=== PATIENT | female | born 1980 | race African-American/Black ===

== ENCOUNTER 2020-06-13 17:22 | Emergency (ER) | payer SELFPAY ==
[2020-06-13] MEDS ORDERED: MORPHINE 4 MG/ML SYR ONE (18:23)
[2020-06-13] MEDS ORDERED: ONDANSETRON 4 MG/2 ML VIAL ONE (18:24)
[2020-06-13] MEDS ORDERED: NA CHLORIDE 0.9% 500 ML ONE (18:24)
[2020-06-13 18:44] LABS: Urine Blood 1+ (NEG); Urine Glucose NEGATIVE (NEG); Urine Protein 1+ (NEG); Urine pH 5.5 (5.0-7.0)
[2020-06-13 19:02] LABS: Absolute Lymphocytes (CBC) 1.6 K/uL (0.7-4.9); Basophils % 0.7 % (0-1.3); Hematocrit 36.6 % (36.0-45.0); Lymphocytes % 12.7 % (15.3-44.8); MPV 8.7 fL (7.6-11.3); RBC Red Blood Cell Count 4.54 M/uL (3.86-4.86)
--- NOTE | 2020-06-13 19:16 | RAD REPORT ---
EXAM DESCRIPTION: CT - Abdomen Pelvis W Contrast - 06/13/2020 7:02 pm CLINICAL HISTORY: Abdominal pain COMPARISON: none. TECHNIQUE: Computed axial tomography of the abdomen pelvis was obtained. 100 cc Isovue-300 was admin istered intravenously. Oral contrast was not requested which limits evaluation of bowel and appendix. All CT scans are performed using dose optimization technique as appropriate and may include automated exposure control or mA/KV adjustment according to patient size. FINDINGS: The liver, spleen, pancreas, adrenal and right kidney appear unremarkable. Small area of diminished density is present within the left kidney reaching the periphery. The appendix is not clearly visualized. Cholecystectomy 2 centimeter left ovarian cyst without significant free fluid There is no evidence of diverticulitis. IMPRESSION: Small area of diminished density within the left kidney may indicate inflammation 2 centimeter left ovarian cyst without significant free-fluid.
[2020-06-13 19:20] LABS: ALT/SGPT 17 U/L (12-78); AST/SGOT 11 U/L (15-37); Albumin 3.3 g/dL (3.4-5.0); Alkaline Phosphatase 52 U/L (45-117); BUN Blood Urea Nitrogen 4 mg/dL (7-18); Bicarbonate 26 mmol/L (21-32); Bilirubin Direct 0.1 mg/dL (0-0.2); Bilirubin Total 0.5 mg/dL (0.2-1.0); Glucose Level 86 mg/dL (74-106); Lipase 122 U/L (73-393); Potassium 3.5 mmol/L (3.5-5.1); Protein, Total 8.3 g/dL (6.4-8.2); Sodium Level 138 mmol/L (136-145)
[2020-06-13 19:42] LABS: Urine Bacteria >50 /HPF (<20); Urine Culture Reflex Order REFLEXED
[2020-06-13 19:43] LABS: Urine Mucus 2+ /HPF (NONE SEEN)
--- NOTE | 2020-06-13 19:45 | EDPHYS ---
Physician Documentation [facility] Name: Randall Edmond Age: 40 yrs Sex: Female : 1980 Arrival Date: 06/13/2020 Time: 17:23 Bed 6 Private MD: ED Physician Son Valdovinos HPI: 06/13 18:44 This 40 yrs old Black Female presents to ER via Ambulatory with complaints of Pain, kdr Headache, Vomiting. 18:44 The patient began to feel poorly last night with mild nausea and headache. Today, her kdr discomfort is now mostly around her upper abdomen and similar latitude on her back - ring like around her torso. The last time she had this kind of pain was many years ago before she had her gallbladder taken out. She is non-toxic appearing and otherwise in her usual state of health. Onset: The symptoms/episode began/occurred last night. Severity of symptoms: At their worst the symptoms were moderate in the emergency department the symptoms are unchanged. The patient has experienced a previous episode, many years ago. The patient has not recently seen a physician. 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 - Social history:: Smoking status: Patient denies any tobacco usage or history of. ROS: 18:44 Constitutional: Negative for fever, chills, and weight loss, Eyes: Negative for injury, kdr pain, redness, and discharge, ENT: Negative for injury, pain, and discharge, Neck: Negative for injury, pain, and swelling, Cardiovascular: Negative for chest pain, palpitations, and edema, Respiratory: Negative for shortness of breath, cough, wheezing, and pleuritic chest pain, : Negative for injury, bleeding, discharge, and swelling, MS/Extremity: Negative for injury and deformity, Skin: Negative for injury, rash, and discoloration, Psych: Negative for depression, anxiety, suicide ideation, homicidal ideation, and hallucinations, Allergy/Immunology: Negative for hives, rash, and allergies, Endocrine: Negative for neck swelling, polydipsia, polyuria, polyphagia, and marked weight changes, Hematologic/Lymphatic: Negative for swollen nodes, abnormal bleeding, and unusual bruising. 18:44 Abdomen/GI: Positive for abdominal pain, nausea, abdominal cramps, Negative for abdominal distension, anorexia, dysphagia, hematemesis, black/tarry stool, rectal pain, rectal bleeding, bowel incontinence, flatulence. 18:44 Abdomen/GI: Positive for of the right upper quadrant and left upper quadrant. 18:44 Back: Positive for pain at rest, of the mid back area. Exam: 18:44 Constitutional: This is a well developed, well nourished patient who is awake, alert, kdr and in no acute distress. Head/Face: Normocephalic, atraumatic. Eyes: Pupils equal round and reactive to light, extra-ocular motions intact. Lids and lashes normal. Conjunctiva and sclera are non-icteric and not injected. Cornea within normal limits. Periorbital areas with no swelling, redness, or edema. Neck: Trachea midline, no thyromegaly or masses palpated, and no cervical lymphadenopathy. Supple, full range of motion without nuchal rigidity, or vertebral point tenderness. No Meningismus. Chest/axilla: Normal chest wall appearance and motion. Nontender with no deformity. No lesions are appreciated. Cardiovascular: Regular rate and rhythm with a normal S1 and S2. No gallops, murmurs, or rubs. Normal PMI, no JVD. No pulse deficits. Respiratory: Lungs have equal breath sounds bilaterally, clear to auscultation and percussion. No rales, rhonchi or wheezes noted. No increased work of breathing, no retractions or nasal flaring. Skin: Warm, dry with normal turgor. Normal color with no rashes, no lesions, and no evidence of cellulitis. MS/ Extremity: Pulses equal, no cyanosis. Neurovascular intact. Full, normal range of motion. Neuro: Awake and alert, GCS 15, oriented to person, place, time, and situation. Cranial nerves II-XII grossly intact. Motor strength 5/5 in all extremities. Sensory grossly intact. Cerebellar exam normal. Normal gait. Psych: Awake, alert, with orientation to person, place and time. Behavior, mood, and affect are within normal limits. 18:44 Abdomen/GI: Inspection: obese Bowel sounds: diminished, in all quadrants, Palpation: soft, mild abdominal tenderness, in the epigastric area, posterior aspect of right lateral abdomen, anterior aspect of right lateral abdomen, posterior aspect of left lateral abdomen, anterior aspect of left lateral abdomen, right upper quadrant and left upper quadrant. Vital Signs: 17:30 BP 136 / 87; Pulse 102; Resp 16; Temp 99.2(TE); Pulse Ox 98% on R/A; Weight 104.33 kg; hb Height 5 ft. 1 in. (154.94 cm); Pain 9/10; 19:05 BP 139 / 55; Pulse 81; Resp 18; Pulse Ox 99% on R/A; Pain 4/10; em 20:07 BP 141 / 87; Pulse 78; Resp 18; Pulse Ox 96% on R/A; wh 17:30 Body Mass Index 43.46 (104.33 kg, 154.94 cm) hb MDM: 18:44 Data reviewed: vital signs, nurses notes, lab test result(s), radiologic studies. kdr Counseling: I had a detailed discussion with the patient and/or guardian regarding: the historical points, exam findings, and any diagnostic results supporting the discharge/admit diagnosis, lab results, radiology results. 19:03 Patient medically screened. rn 19:44 Differential Diagnosis UTI, pyelo, ovarian cyst. Special discussion: Based on the rn patient's Hx, exam, and Dx evaluation, there is no indication for emergent surgery or inpatient Tx. It is understood by the patient/guardian that if the Sx's persist or worsen they need to return immediately for re-evaluation. I discussed with the patient/guardian in detail that at this point there is no indication for admission to the hospital. It is understood, however, that if the symptoms persist or worsen the patient needs to return immediately for re-evaluation. 06/13 17:54 Order name: Basic Metabolic Panel kdr 06/13 17:54 Order name: CBC with Diff; Complete Time: 19:11 kdr 06/13 17:54 Order name: Hepatic Function; Complete Time: 19:38 kdr 06/13 17:54 Order name: Lipase; Complete Time: 19:38 kdr 06/13 17:54 Order name: Basic Metabolic Panel; Complete Time: 19:38 EDMS 06/13 18:35 Order name: Urine Dipstick--Ancillary (enter results); Complete Time: 19:11 bd 06/13 17:54 Order name: CT Abd/Pelvis - IV Contrast Only; Complete Time: 19:38 kdr 06/13 18:36 Order name: Urine --Ancillary (enter results); Complete Time: 19:11 bd 06/13 18:49 Order name: Urine Microscopic Only; Complete Time: 19:44 em 06/13 19:43 Order name: Urine Culture EDIN 06/13 17:54 Order name: IV Saline Lock; Complete Time: 19:03 kdr 06/13 17:54 Order name: Labs collected and sent; Complete Time: 19:03 kdr 06/13 17:54 Order name: Urine Dipstick-Ancillary (obtain specimen); Complete Time: 18:49 kdr 06/13 17:54 Order name: Urine Test (obtain specimen); Complete Time: 18:49 kdr Administered Medications: 18:45 Drug: Zofran (Ondansetron) 4 mg Route: IVP; Site: left antecubital; em 20:07 Follow up: Response: No adverse reaction; Nausea is decreased 18:45 Drug: NS 0.9% 500 ml Route: IV; Rate: bolus; Site: left forearm; em 20:08 Follow up: Response: No adverse reaction; IV Status: Completed infusion 18:47 Drug: morphine 4 mg Route: IVP; Site: left forearm; em 20:07 Follow up: Response: No adverse reaction; Pain is decreased; RASS: Alert and Calm (0) 19:50 Drug: Rocephin 1 grams Route: IV; Rate: calculated rate; Site: left forearm; 20:08 Follow up: Response: No adverse reaction; IV Status: Completed infusion Disposition: 06/13/20 19:45 Discharged to Home. Impression: Urinary tract infection, site not specified. - Condition is Stable. - Discharge Instructions: Urinary Tract Infection, Adult. - Prescriptions for Zofran ODT 4 mg Oral tablet,disintegrating - place 1 tablet by TRANSLINGUAL route every 8-12 hours As needed; 20 tablet. cefpodoxime 100 mg Oral Tablet - take 2 tablet by ORAL route every 12 hours for 10 days take with food; 40 tablet. - Medication Reconciliation Form, Thank You Letter, Antibiotic Education, Prescription Opioid Use form. - Follow up: Private Physician; When: As needed; Reason: Recheck today's complaints, Re-evaluation by your physician. - Problem is new. - Symptoms have improved. Signatures: Dispatcher [employer] Sean Herman MD MD kdr Munoz, Edgar, RN RN Son Obrien MD MD rn Habalo, Winsy wh Lewis, Lynsay RN RN ll1 Corrections: (The following items were deleted from the chart) 20: 19:45 06/13/2020 19:45 Discharged to Home. Impression: Urinary tract infection, site wh not specified. Condition is Stable. Forms are Medication Reconciliation Form, Thank You Letter, Antibiotic Education, Prescription Opioid Use. Follow up: Private Physician; When: As needed; Reason: Recheck today's complaints, Re-evaluation by your physician. Problem is new. Symptoms have improved. rn
--- NOTE | 2020-06-13 19:45 | ER ---
Nurse's Notes [facility] Name: Randall Edmond Age: 40 yrs Sex: Female : 1980 Arrival Date: 06/13/2020 Time: 17:23 Bed 6 Private MD: Diagnosis: Urinary tract infection, site not specified Presentation: 06/13 17:30 Chief complaint: Frontal headache, mid back back pain that radiates to abdomen, and N/V ll1 since last night. Coronavirus screen: Client presents with at least one sign or symptom that may indicate coronavirus-19. Standard/surgical mask placed on the client. Provider contacted for isolation considerations. Ebola Screen: No symptoms or risks identified at this time. Initial Sepsis Screen: Does the patient meet any 2 criteria? HR > 90 bpm. No. Patient's initial sepsis screen is negative. Does the patient have a suspected source of infection? No. Patient's initial sepsis screen is negative. Risk Assessment: Do you want to hurt yourself or someone else? Patient reports no desire to harm self or others. Onset of symptoms was June 12, 2020. 17:30 Method Of Arrival: Ambulatory ll1 17:30 Acuity: ALEIDA 3 ll1 Triage Assessment: 19:30 Headache History: The patient has had previous headaches and this one is similar to wh previous episodes. Pain: Pain began suddenly, Also complains of nausea. 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 - Social history:: Smoking status: Patient denies any tobacco usage or history of. Screenin:20 Abuse screen: Denies threats or abuse. Nutritional screening: No deficits noted. em Tuberculosis screening: No symptoms or risk factors identified. Fall Risk None identified. Assessment: 18:20 General: Appears in no apparent distress. uncomfortable, Behavior is calm, cooperative, em Denies fever. Pain: Complains of pain in anterior aspect of left lateral abdomen and posterior aspect of left lateral abdomen and anterior aspect of right lateral abdomen and posterior aspect of right lateral abdomen and epigastric area Pain currently is 9 out of 10 on a pain scale. Quality of pain is described as sharp. Neuro: Level of Consciousness is awake, alert, obeys commands, Oriented to person, place, time, situation, Appropriate for age. Cardiovascular: Capillary refill < 3 seconds Patient's skin is warm and dry. Respiratory: Airway is patent Respiratory effort is even, unlabored, Respiratory pattern is regular, symmetrical. GI: Abdomen is flat, non-distended, Abd is soft X 4 quads Abdomen is tender to palpation in posterior aspect of right lateral abdomen, anterior aspect of right lateral abdomen, posterior aspect of left lateral abdomen and anterior aspect of left lateral abdomen Reports nausea, vomiting. Derm: Skin is intact, is healthy with good turgor, Skin is pink, warm \T\ dry. Musculoskeletal: Capillary refill < 3 seconds, Range of motion: intact in all extremities. 19:30 Reassessment: Patient appears in no apparent distress at this time. Patient and/or wh family updated on plan of care and expected duration. Pain level reassessed. Patient is alert, oriented x 3, equal unlabored respirations, skin warm/dry/pink. Vital Signs: 17:30 BP 136 / 87; Pulse 102; Resp 16; Temp 99.2(TE); Pulse Ox 98% on R/A; Weight 104.33 kg; hb Height 5 ft. 1 in. (154.94 cm); Pain 9/10; 19:05 BP 139 / 55; Pulse 81; Resp 18; Pulse Ox 99% on R/A; Pain 4/10; em 20:07 BP 141 / 87; Pulse 78; Resp 18; Pulse Ox 96% on R/A; wh 17:30 Body Mass Index 43.46 (104.33 kg, 154.94 cm) hb ED Course: 17:23 Patient arrived in ED. ag5 17:32 Triage completed. ll1 17:33 Arm band placed on. ll1 17:39 Sean Gallardo MD is Attending Physician. kdr 18:11 Zen Dubon, SELVIN is Primary Nurse. em 18:20 Patient has correct armband on for positive identification. Bed in low position. Call em light in reach. 18:45 Initial lab(s) drawn, by me, sent to lab. Inserted saline lock: 22 gauge in left em forearm, using aseptic technique. Blood collected. 19:02 CT Abd/Pelvis - IV Contrast Only In Process Unspecified. EDMS 19:03 Attending Physician role handed off by Sean Gallardo MD rn 19:03 Son Valdovinos MD is Attending Physician. rn 19:53 Primary Nurse role handed off by Zen Dubon RN mw2 20:06 Chelle Phillips is Primary Nurse. 20:08 No provider procedures requiring assistance completed. IV discontinued, intact, bleeding controlled, No redness/swelling at site. Administered Medications: 18:45 Drug: Zofran (Ondansetron) 4 mg Route: IVP; Site: left antecubital; em 20:07 Follow up: Response: No adverse reaction; Nausea is decreased 18:45 Drug: NS 0.9% 500 ml Route: IV; Rate: bolus; Site: left forearm; em 20:08 Follow up: Response: No adverse reaction; IV Status: Completed infusion 18:47 Drug: morphine 4 mg Route: IVP; Site: left forearm; em 20:07 Follow up: Response: No adverse reaction; Pain is decreased; RASS: Alert and Calm (0) 19:50 Drug: Rocephin 1 grams Route: IV; Rate: calculated rate; Site: left forearm; 20:08 Follow up: Response: No adverse reaction; IV Status: Completed infusion Outcome: 19:45 Discharge ordered by . rn 20:08 Discharged to home ambulatory. 20:08 Condition: stable 20:08 Discharge instructions given to patient, Instructed on discharge instructions, follow up and referral plans. medication usage, POC Demonstrated understanding of instructions, follow-up care, medications, POC Prescriptions given X 2. 20:09 Patient left the ED. Signatures: Dispatcher [employer] EDMS Sean Gallardo MD MD [facility] Zen Dubon RN RN Son Valdovinos MD MD rn Baxter, Heather, RN RN Chelle Phillips Zunilda Sandoval mw2 Jessica Magaña 5 Ghanshyam Ibarra RN RN ll1 Corrections: (The following items were deleted from the chart) 17:38 17:30 Pulse 102bpm; Resp 16bpm; Pulse Ox 98% RA; Temp 99.2F Temporal; 104.33 kg; Height hb 5 ft. 1 in.; BMI: 43.4; Pain 9/10; ll1
[2020-06-13] MEDS ORDERED: CEFTRIAXONE/SWI 1gm 1 GM/10 ML SYR ONE (19:58)
[2020-06-13 20:34] VITALS: TEMP 99.2
[2020-06-13 20:37] VITALS: BP 141/87; O2SAT 96
== END 2020-06-13 20:09 | disposition home or self-care (01) ==
LOC: ER 17:22
DX: N39.0 Urinary tract infection, site not specified (principal)
CPT/HCPCS: 36415; 74177; 80048; 80076; 81003; 81015; 81025; 82565; 83690; 85025; 87086; 87088; 99284; J0696; J2405; J7040; Q9967

== ENCOUNTER 2021-06-29 20:24 | Emergency (ER) | payer SELFPAY ==
[2021-06-29 21:56] LABS: Urine Blood Trace-intact (Negative); Urine Glucose Negative (Negative); Urine Protein Negative (Negative); Urine Specific Gravity >=1.030 (1.005-1.030)
[2021-06-29] MEDS ORDERED: MORPHINE 4 MG/ML SYR ONE (21:57)
[2021-06-29] MEDS ORDERED: NA CHLORIDE 0.9% 500 ML ONE (21:58)
[2021-06-29] MEDS ORDERED: ONDANSETRON 4 MG/2 ML VIAL ONE (21:58)
[2021-06-29 22:00] LABS: Urine Specific Gravity/Preg >1.030 (1.005-1.030)
[2021-06-29 22:07] LABS: Urine Bacteria <20 /HPF (<20); Urine RBC <5 /HPF (NONE SEEN)
[2021-06-29 23:07] LABS: Absolute Lymphocytes (CBC) 2.6 K/uL (0.7-4.9); Basophils % 0.9 % (0-1.3); Hematocrit 39.2 % (36.0-45.0); Lymphocytes % 38.3 % (15.3-44.8); MPV 8.3 fL (7.6-11.3); RBC Red Blood Cell Count 4.88 M/uL (3.86-4.86)
[2021-06-29 23:23] LABS: ALT/SGPT 20 U/L (12-78); AST/SGOT 13 U/L (15-37); Albumin 3.8 g/dL (3.4-5.0); Alkaline Phosphatase 56 U/L (45-117); BUN Blood Urea Nitrogen 5 mg/dL (7-18); Bicarbonate 26 mmol/L (21-32); Bilirubin Direct < 0.1 mg/dL (0-0.2); Bilirubin Total 0.4 mg/dL (0.2-1.0); Glucose Level 91 mg/dL (74-106); Lipase 108 U/L (73-393); Potassium 3.6 mmol/L (3.5-5.1); Protein, Total 8.6 g/dL (6.4-8.2); Sodium Level 139 mmol/L (136-145)
[2021-06-30] MEDS ORDERED: KETOROLAC 30 MG/ML INJ ONE (00:25)
[2021-06-30] MEDS ORDERED: LIDOCAINE 4% PATCH ONE (00:25)
--- NOTE | 2021-06-30 01:47 | EDPHYS ---
Physician Documentation [facility] Name: Randall Morillo Age: 41 yrs Sex: Female : 1980 Arrival Date: 06/29/2021 Time: 20:26 Bed 19 Private MD: ED Physician Son Valdovinos HPI: 06/29 21:15 This 41 yrs old Black Female presents to ER via Wheelchair with complaints of Back Pain.cp 21:15 The patient presents with pain that is acute, with no known mechanism of injury. The cp symptoms are located in the mid back area. Onset: The symptoms/episode began/occurred suddenly, this morning. The pain does not radiate. 21:15 Associated signs and symptoms: Pertinent negatives: abdominal pain, dysuria, fever, cp hematuria, incontinence, numbness, urinary retention, weakness. The problem was sustained from unknown cause. 21:15 Modifying factors: the patient symptoms are aggravated by movement, standing. cp 21:15 Severity of symptoms: in the emergency department the symptoms are unchanged, despite cp home interventions. 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 - Social history:: Smoking status: Patient denies any tobacco usage or history of. ROS: 21:20 Back: Positive for pain at rest, pain with movement, of the mid back area. cp 21:20 Eyes: Negative for injury, pain, redness, and discharge. cp 21:20 Constitutional: Negative for body aches, chills, fever, poor PO intake. 21:20 Neck: Negative for pain with movement, pain at rest, stiffness. 21:20 Cardiovascular: Negative for chest pain, edema, palpitations. 21:20 Respiratory: Negative for cough, shortness of breath, wheezing. 21:20 Abdomen/GI: Negative for abdominal pain, nausea, vomiting, and diarrhea, constipation, bowel incontinence. 21:20 : Negative for urinary symptoms, difficulty urinating, bladder incontinence. 21:20 Neuro: Negative for altered mental status, dizziness, headache, numbness, weakness. 21:20 All other systems are negative. Exam: 21:25 Constitutional: The patient appears in no acute distress, alert, awake, cp non-diaphoretic, non-toxic, well developed, well nourished, obese, uncomfortable. 21:25 Head/Face: Normocephalic, atraumatic. cp 21:25 Eyes: Periorbital structures: appear normal, Conjunctiva: normal, no exudate, no cp injection, Sclera: no appreciated abnormality, Lids and lashes: appear normal, bilaterally. 21:25 ENT: External ear(s): are unremarkable, Nose: is normal, Mouth: Lips: moist, Oral cp mucosa: moist, Posterior pharynx: Airway: no evidence of obstruction, patent. 21:25 Neck: ROM/movement: is normal, is supple, without pain, no range of motions limitations, no nuchal rigidity. 21:25 Chest/axilla: Inspection: normal. 21:25 Cardiovascular: Rate: normal, Rhythm: regular, Edema: is not appreciated, JVD: is not appreciated. 21:25 Respiratory: the patient does not display signs of respiratory distress, Respirations: normal, no use of accessory muscles, no retractions, labored breathing, is not present. 21:25 Abdomen/GI: Inspection: abdomen appears normal, Bowel sounds: active, all quadrants, Palpation: abdomen is soft and non-tender, in all quadrants. 21:25 Back: pain, that is moderate, of the mid back area, ROM is painful, with all movement, vertebral tenderness, is not appreciated. 21:25 Neuro: Orientation: to person, place \T\ time. Mentation: is normal, Motor: moves all cp fours, strength is normal, Sensation: is normal, Gait: is steady. Vital Signs: 20:44 BP 176 / 86; Pulse 68; Resp 16; Temp 97.9; Pulse Ox 100% ; Weight 104.33 kg; Height 5 vg1 ft. 1 in. (154.94 cm); Pain 03/03; 06/30 02:20 BP 163 / 84; Pulse 60; Resp 20; Temp 98.4(O); Pulse Ox 100% on R/A; cc4 06/29 20:44 Body Mass Index 43.46 (104.33 kg, 154.94 cm) vg1 MDM: 06/29 20:58 Patient medically screened. cp 22:00 Differential diagnosis: Cholelithiasis Pyelonephritis ruptured disc, spinal injury, cp Ureterolithiasis vertebral fracture. 06/30 01:45 Data reviewed: vital signs, nurses notes, lab test result(s), radiologic studies, CT cp scan. 01:45 Counseling: I had a detailed discussion with the patient and/or guardian regarding: the cp historical points, exam findings, and any diagnostic results supporting the discharge/admit diagnosis, lab results, radiology results, the need for outpatient follow up, for definitive care, a urologist, to return to the emergency department if symptoms worsen or persist or if there are any questions or concerns that arise at home. 01:55 ED course: Vital signs stable. Patient continues to report 5 out of 10 pain. Will give cp oral hydrocodone Flexeril for pain here in the ED with understanding that patient is to have a friend or family member transport patient back home. 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 Patient instructed on need for urgent follow-up with urology and contact information for Dr. Rashid given. Will discharge patient to home. 06/29 21:07 Order name: Basic Metabolic Panel 06/29 21:07 Order name: CBC with Diff; Complete Time: 23:55 06/29 23:55 Interpretation: Normal except: RBC 4.88; MCH 26.5. 06/29 21:07 Order name: Hepatic Function; Complete Time: 23:55 06/29 23:56 Interpretation: Normal except: AST 13; TP 8.6; GLOB 4.8; A/G 0.8. 06/29 21:07 Order name: Lipase; Complete Time: 23:55 06/29 21:07 Order name: Urine Microscopic Only; Complete Time: 22:08 06/30 00:27 Interpretation: Reviewed. 06/29 21:07 Order name: Basic Metabolic Panel; Complete Time: 23:55 EDMS 06/30 00:27 Interpretation: Normal except: BUN 5. 06/29 21:55 Order name: Urine Dipstick-Ancillary; Complete Time: 22:08 EDMS 06/29 22:38 Interpretation: Normal except: UBLD Trace-intact. 06/29 21:56 Order name: Urine --Ancillary (enter results); Complete Time: 22:08 tt3 06/29 22:25 Order name: CT Abd/Pelvis - IV Contrast Only cp 06/29 21:07 Order name: IV Saline Lock; Complete Time: 23:06 cp 06/29 21:07 Order name: Labs collected and sent; Complete Time: 23:08 cp 06/29 21:07 Order name: Urine Dipstick-Ancillary (obtain specimen); Complete Time: 22:02 cp 06/29 21:07 Order name: Urine Test (obtain specimen); Complete Time: 22:02 cp Administered Medications: 06/29 22:53 Drug: morphine 4 mg Route: IVP; Site: right antecubital; cc4 23:30 Follow up: Response: No adverse reaction; Pain is decreased cc4 22:53 Drug: Zofran (Ondansetron) 4 mg Route: IVP; Site: right antecubital; cc4 23:30 Follow up: Response: No adverse reaction cc4 22:53 Drug: NS 0.9% 500 ml Route: IV; Rate: bolus; Site: right antecubital; cc4 23:30 Follow up: IV Status: Completed infusion; IV Intake: 500ml cc4 23:30 Drug: NS 0.9% 500 ml Route: IV; Rate: 125 ml/hr; Site: right antecubital; 4 06/30 02:20 Follow up: IV Status: Order to discontinue infusion; IV Intake: 300ml cc4 00:28 Drug: Lidoderm Patch 5 % (700 mg/patch) 1 patches Route: Topical; Site: affected area; cc4 01:30 Follow up: Response: No adverse reaction; Pain is unchanged, physician notified cc4 00:28 Drug: Ketorolac 30 mg Route: IVP; Site: right antecubital; cc4 01:30 Follow up: Response: No adverse reaction; Pain is unchanged, physician notified cc4 01:44 CANCELLED (Physician Discretion): HYDROcodone-acetaminophen 10 mg-325 mg 1 tabs PO cp once; RASS on ADMIN: Combtv4, Very Agttd3, Agttd2, Rstlss1, AlertClm0, Drwsy-1, Lt Sdtn-2, Mod Sdtn-3, Dp Sdtn-4, UnArsble-5 02:20 Drug: Hydrocodone-Acetaminophen (7.5 mg-325 mg) 1 tabs Route: PO; cc4 02:20 Follow up: Response: No adverse reaction cc4 02:20 Drug: Flexeril (cyclobenzaprine) 10 mg Route: PO; cc4 02:20 Follow up: BP 163 / 84; Pulse 60 bpm; Resp 20 bpm; Temp 98.4 Oral; Pulse Ox 100% RA cc4 02:20 Follow up: Response: No adverse reaction cc4 Disposition: 03:00 Co-signature as Attending Physician, Son Valdovinos MD I agree with the assessment and rn plan of care. Attestation: The patient's history, exam findings, diagnostics, and a summary of any interventions or procedures was reviewed in detail with Asad BLUM. Disposition Summary: 06/30/21 01:46 Discharge Ordered Location: Home cp Problem: new cp Symptoms: have improved cp Condition: Stable cp Diagnosis - Low back pain cp Followup: cp - With: Private Physician - When: 2 - 3 days - Reason: low back pain Followup: cp - With: José Miguel Rashid MD - When: 2 - 3 days - Reason: bladder mass Discharge Instructions: - Discharge Summary Sheet cp - Acute Back Pain, Adult cp - Heat Therapy cp - Back Exercises cp - Bladder Biopsy cp Forms: - Medication Reconciliation Form cp - Thank You Letter cp - Antibiotic Education cp - Prescription Opioid Use cp Prescriptions: - Lidoderm 5 % Topical adhesive patch,medicated - apply 1 patch by TOPICAL route once daily; 1 box; Refills: 0, Product Selection cp Permitted - Cyclobenzaprine 10 mg Oral Tablet - take 1 tablet by ORAL route every 8 hours As needed; 20 tablet; Refills: 0, cp Product Selection Permitted - Diclofenac Sodium 75 mg Oral Tablet Sustained Release - take 1 tablet by ORAL route 2 times per day; 30 tablet; Refills: 0, Product cp Selection Permitted Signatures: Dispatcher [employer] EDSon Holder MD MD rn Page, Corey, PA PA cp Garcia, Victoria, RN RN vg1 Catherine Yousif RN RN cc4 Corrections: (The following items were deleted from the chart) 06/29 20:48 20:47 Home Meds: Trazodone Oral; vg1 vg1 06/30 01:44 01:43 HYDROcodone-acetaminophen 10 mg-325 mg 1 tabs PO once; RASS on ADMIN: Combtv4, cp Very Agttd3, Agttd2, Rstlss1, AlertClm0, Drwsy-1, Lt Sdtn-2, Mod Sdtn-3, Dp Sdtn-4, UnArsble-5 ordered. cp
--- NOTE | 2021-06-30 01:47 | ER ---
Nurse's Notes [facility] Name: Randall Morillo Age: 41 yrs Sex: Female : 1980 Arrival Date: 06/29/2021 Time: 20:26 Bed 19 Private MD: Diagnosis: Low back pain Presentation: 06/29 20:44 Chief complaint: Patient states: Woke up this morning with mid back pain; took Tylenol vg1 1g but states Tylenol did not help and the pain became worse throughout the day. States was fine yesterday with no pain at all. 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 Denies NVD, ABD pain, numbness or tingling to extremities, or any burning with urination. Coronavirus screen: Vaccine status: Patient reports being unvaccinated. Client denies travel out of the [place] in the last 14 days. Ebola Screen: Patient negative for fever greater than or equal to 101.5 degrees Fahrenheit, and additional compatible Ebola Virus Disease symptoms. Initial Sepsis Screen: Does the patient meet any 2 criteria? No. Patient's initial sepsis screen is negative. Does the patient have a suspected source of infection? No. Patient's initial sepsis screen is negative. Risk Assessment: Do you want to hurt yourself or someone else? Patient reports no desire to harm self or others. Onset of symptoms was June 29, 2021. 20:44 Method Of Arrival: Wheelchair vg1 20:44 Acuity: ALEIDA 3 vg1 Triage Assessment: 20:47 General: Appears in no apparent distress. uncomfortable, Behavior is calm, cooperative. vg1 Pain: Complains of pain in left mid back and right mid back Pain currently is 7 out of 10 on a pain scale. Neuro: Level of Consciousness is awake, alert, obeys commands, Oriented to person, place, time, situation. Musculoskeletal: Circulation, motion, and sensation intact. PEST LOCATOR: 20:47 LMP 06/25/2021 vg1 Historical: - Allergies: 20:47 No Known Allergies; vg1 - Home Meds: 20:47 None [Active]; vg1 - PMHx: 20:47 Back pain; vg1 - PSHx: 20:47 Cholecystectomy; vg1 - Immunization history:: Adult Immunizations up to date, Client reports having NOT received the Covid vaccine. - Social history:: Smoking status: Patient denies any tobacco usage or history of. Screenin:44 Abuse screen: Denies threats or abuse. Nutritional screening: No deficits noted. cc4 Tuberculosis screening: No symptoms or risk factors identified. Fall Risk None identified. Assessment: 21:00 General: Appears uncomfortable, Behavior is calm, cooperative. Pain: Complains of pain cc4 in back Pain does not radiate. Pain currently is 8 out of 10 on a pain scale. Quality of pain is described as aching, Pain began suddenly, Is continuous, Alleviated by nothing. Neuro: No deficits noted. Level of Consciousness is awake, alert, obeys commands, Oriented to person, place, time, situation. Cardiovascular: No deficits noted. Respiratory: No deficits noted. Airway is patent Breath sounds are clear bilaterally. GI: No signs and/or symptoms were reported involving the gastrointestinal system. : No signs and/or symptoms were reported regarding the genitourinary system. EENT: No signs and/or symptoms were reported regarding the EENT system. Derm: No signs and/or symptoms reported regarding the dermatologic system. Musculoskeletal: Capillary refill < 3 seconds, Range of motion: intact in all extremities, Gait slow \T\ steady; no weakness of extremities noted. 21:10 Reassessment: Up \T\ ambulatory to restroom with no difficulty; urine specimen collected cc4 \T\ sent to lab; urine negative. 21:15 Reassessment: Attempted to start IV x 3 with no success; SELVIN Fish, charge nurse cc4 notified \T\ reports will try to start IV with ultrasound. 22:53 Reassessment: No changes from previously documented assessment. # 18 g angiocath cc4 inserted right AC x 1 attempt per SELVIN Fish using ultrasound, nicky. well; IV NS hung to saline lock \T\ infusing \T\ bolus rate with no s/sx's of infiltration noted of site; medicated as ordered (see orders). 06/30 00:05 Reassessment: Reports pain of back has moved from left to right \T\ 5/10 on pain scale; cc4 to CT via stretcher. 00:28 Reassessment: No changes from previously documented assessment. Returned from CT via cc4 stretcher; con't to c/o right back pain 5/10; toradol 30 mg given slow IVP; lidocaine patch 5% applied to right mid back as designated location of pain at present time. 02:00 Reassessment: Patient appears in no apparent distress at this time. No changes from cc4 previously documented assessment. Reports pain remaiins 5/10 on pain scale; Yon Armijo notified with new orders rec'd. 02:20 Reassessment: Patient appears in no apparent distress at this time. VIKTORIA Hilton in cc4 discussing CT scan results with patient; medicated for pain as ordered; arrived \T\ driving home due pain med given; instructed not to drive while taking pain medication. Vital Signs: 06/29 20:44 BP 176 / 86; Pulse 68; Resp 16; Temp 97.9; Pulse Ox 100% ; Weight 104.33 kg; Height 5 vg1 ft. 1 in. (154.94 cm); Pain 7/10; 06/30 02:20 BP 163 / 84; Pulse 60; Resp 20; Temp 98.4(O); Pulse Ox 100% on R/A; cc4 06/29 20:44 Body Mass Index 43.46 (104.33 kg, 154.94 cm) vg1 ED Course: 06/29 20:26 Patient arrived in ED. wm 20:44 cardiac monitor on. Pulse ox on. NIBP on. cc4 20:44 Patient has correct armband on for positive identification. Bed in low position. Call cc4 light in reach. Side rails up X 1. 20:44 No provider procedures requiring assistance completed. cc4 20:47 Triage completed. vg1 20:47 Arm band placed on. vg1 20:52 Asad Armijo PA is PHCP. cp 20:52 Son Valdovinos MD is Attending Physician. cp 21:27 Catherine Yousif, SELVIN is Primary Nurse. cc4 22:02 Urine Microscopic Only Sent. cc4 22:45 Initial lab(s) drawn, by me, sent to lab. Inserted saline lock: 18 gauge in right bb antecubital area, using aseptic technique. Blood collected. 23:06 Basic Metabolic Panel Sent. cc4 23:06 CT Abd/Pelvis - IV Contrast Only Sent. cc4 23:06 Basic Metabolic Panel Sent. cc4 23:08 Lipase Sent. cc4 23:08 Hepatic Function Sent. cc4 11 00:14 CT Abd/Pelvis - IV Contrast Only In Process Unspecified. EDMS 01:45 José Miguel Rashid MD is Referral Physician. cp 02:20 IV discontinued, intact, bleeding controlled, No redness/swelling at site. Pressure cc4 dressing applied. Administered Medications: 06/29 22:53 Drug: morphine 4 mg Route: IVP; Site: right antecubital; cc4 23:30 Follow up: Response: No adverse reaction; Pain is decreased cc4 22:53 Drug: Zofran (Ondansetron) 4 mg Route: IVP; Site: right antecubital; cc4 23:30 Follow up: Response: No adverse reaction cc4 22:53 Drug: NS 0.9% 500 ml Route: IV; Rate: bolus; Site: right antecubital; cc4 23:30 Follow up: IV Status: Completed infusion; IV Intake: 500ml cc4 23:30 Drug: NS 0.9% 500 ml Route: IV; Rate: 125 ml/hr; Site: right antecubital; cc4 06/30 02:20 Follow up: IV Status: Order to discontinue infusion; IV Intake: 300ml cc4 00:28 Drug: Lidoderm Patch 5 % (700 mg/patch) 1 patches Route: Topical; Site: affected area; cc4 01:30 Follow up: Response: No adverse reaction; Pain is unchanged, physician notified cc4 00:28 Drug: Ketorolac 30 mg Route: IVP; Site: right antecubital; cc4 01:30 Follow up: Response: No adverse reaction; Pain is unchanged, physician notified cc4 01:44 CANCELLED (Physician Discretion): HYDROcodone-acetaminophen 10 mg-325 mg 1 tabs PO cp once; RASS on ADMIN: Combtv4, Very Agttd3, Agttd2, Rstlss1, AlertClm0, Drwsy-1, Lt Sdtn-2, Mod Sdtn-3, Dp Sdtn-4, UnArsble-5 02:20 Drug: Hydrocodone-Acetaminophen (7.5 mg-325 mg) 1 tabs Route: PO; cc4 02:20 Follow up: Response: No adverse reaction cc4 02:20 Drug: Flexeril (cyclobenzaprine) 10 mg Route: PO; cc4 02:20 Follow up: BP 163 / 84; Pulse 60 bpm; Resp 20 bpm; Temp 98.4 Oral; Pulse Ox 100% RA cc4 02:20 Follow up: Response: No adverse reaction cc4 Intake: 06/29 23:30 IV: 500ml; Total: 500ml. cc4 06/30 02:20 IV: 300ml; Total: 800ml. cc4 Outcome: 01:46 Discharge ordered by MD. cp 02:20 Discharged to home ambulatory. cc4 02:20 Condition: stable 02:20 Discharge instructions given to patient, Instructed on discharge instructions, follow up and referral plans. medication usage, Demonstrated understanding of instructions, follow-up care, medications, Prescriptions given X 3. 02:26 Patient left the ED. cc4 Signatures: Dispatcher [employer] EDMS Polina Cheung RN RN Asad Diaz PA PA cp Garcia, Victoria RN RN vg1 Keily Burgos Christie, RN RN cc4 Corrections: (The following items were deleted from the chart) 06/29 20:48 20:47 Home Meds: Trazodone Oral; vg1 vg1 20:50 20:44 Chief complaint: Patient states: Woke up this morning with mid back pain; took vg1 Tylenol 1g but states Tylenol did not help and the pain became worse throughout the day. States was fine yesterday with no pain at all. 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 Denies NVD, ABD pain, or any burning with urination. vg1
[2021-06-30] MEDS ORDERED: CYCLOBENZAPRINE 10 MG TAB ONE (01:48)
[2021-06-30] MEDS ORDERED: HYDROCODONE/APAP 7.5/325 MG TAB ONE (01:49)
--- NOTE | 2021-06-30 20:33 | RAD REPORT ---
EXAM DESCRIPTION: CT - Abdomen Pelvis W Contrast - 06/30/2021 6:28 am CLINICAL HISTORY: The patient is 41 years old and is Female; FLANK PAIN TECHNIQUE: Axial computed tomography images of the abdomen and pelvis with intravenous contrast. S agittal and coronal reformatted images were created and reviewed. This CT exam was performed using one or more of the following dose reduction techniques: automated exposure control, adjustment of t he mA and/or kV according to patient size, and/or use of iterative reconstruction technique. COMPARISON: CT abdomen and pelvis with contrast May 2020. FINDINGS: Lung bases: Unremarkable. No mass. No consolidation. ABDOMEN: Liver: Unremarkable. No mass. Gallbladder and bile ducts: Gallbladder is surgically absent. No ductal dilation. Pancreas: Unremarkable. No mass. No ductal dilation. Spleen: Unremarkable. No splenomegaly. Adrenals: Unremarkable. No mass. Kidneys and ureters: Unremarkable. No solid mass. No hydronephrosis. Stomach and bowel: Unremarkable. No obstruction. No mucosal thickening. PELVIS: Appendix: No findings to suggest acute appendicitis. Bladder: Suggestion of a 1.7 x 1.9 cm soft tissue nodule along the anterior wall of the bladder. 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 Reproductive: Left ovarian/adnexal cyst, similar to prior. ABDOMEN and PELVIS: Intraperitoneal space: Unremarkable. No free air. No significant fluid collection. Bones/joints: No acute fracture. No dislocation. Soft tissues: Unremarkable. Vasculature: Unremarkable. No abdominal aortic aneurysm. Lymph nodes: Unremarkable. No enlarged lymph nodes. IMPRESSION: 1. No acute finding abdomen/pelvis. 2. Gallbladder is surgically absent. 3. Suggestion of a 1.7 x 1.9 cm soft tissue nodule along the anterior wall of the bladder. 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 Electronically signed by: Taz Dolan MD 06/30/2021 1:13 AM CDT Due to temporary technical issues with the PACS/Fluency reporting system, reports are being signed by the in house radiologists without review as a courtesy to insure prompt reporting. The interpreting radiologist is fully responsible for the content of the report.
== END 2021-06-30 02:26 | disposition home or self-care (01) ==
LOC: ER 20:24
DX: M54.50 Low back pain, unspecified (principal)
CPT/HCPCS: 36415; 74177; 80048; 80076; 81003; 81015; 81025; 83690; 85025; 96361; 96374; 96375; 99284; J2405; J7040; Q9967

== ENCOUNTER 2021-09-25 16:35 | Emergency (ER) | payer SELFPAY ==
--- OUTSIDE RECORDS SUMMARY | 2021-09-25 16:37 | XMS REPORT | Continuity of Care Document ---
:1980 Author Organization [facility] t Address [address] [place] [address] Care Team Providers Name Role Phone Unavailable Unavailable Unavailable Problems This patient has no known problems. Allergies, Adverse Reactions, Alerts This patient has no known allergies or adverse reactions. Medications This patient has no known medications. Procedures This patient has no known procedures. Encounters Start End Encounter Admission Attending Care Care Encounter Source Date/Time Date/Time Type Type Clinicians Facility Department ID 2021-09-19 Outpatient [facility] [id number] [facility] [address] 14:22:46 [id number] 2021-09-19 Outpatient [facility] [id number] [facility] [address] 14:11:48 [id number] [facility] 2021-08-02 2021-08-02 ambulatory [facility] [id number] [facility] [address] 00:00:00 00:00:00 [facility] Results This patient has no known results.
[2021-09-25] MEDS ORDERED: HYDROCODONE/APAP 5/325 MG TAB ONE ×2 (17:09→18:41)
[2021-09-25] MEDS ORDERED: BUPIVACAINE 0.5% PF 10 ML VIAL ONE ×2 (19:35→19:43)
--- NOTE | 2021-09-25 20:47 | EDPHYS ---
Physician Documentation [facility] Name: Randall Morillo Age: 41 yrs Sex: Female : 1980 Arrival Date: 09/25/2021 Time: 16:38 Bed 10 Private MD: ED Physician Son Valdovinos HPI: 09/25 17:08 This 41 yrs old Black Female presents to ER via Ambulatory with complaints of Facial jmm Pain. 20:39 The patient presents with pain. Onset: The symptoms/episode began/occurred gradually. jmm Duration: The symptoms are continuous, and are steadily getting worse. Modifying factors: The symptoms are alleviated by nothing, the symptoms are aggravated by nothing. Associated signs and symptoms: Pertinent positives: pain, swelling. The patient has not experienced similar symptoms in the past. This is a 41 year old female with a history of back pain that presents to the ED with complaints of right lower dental pain beginning this morning. Patient has previously cracked the teeth. . 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 - Social history:: Smoking status: Patient denies any tobacco usage or history of. Patient/guardian denies using alcohol. ROS: 20:39 Constitutional: Negative for fever, chills, and weight loss. jmm 20:39 Neck: Negative for injury, pain, and swelling, Cardiovascular: Negative for chest pain, palpitations, and edema, Respiratory: Negative for shortness of breath, cough, wheezing, and pleuritic chest pain, Abdomen/GI: Negative for abdominal pain, nausea, vomiting, diarrhea, and constipation, Back: Negative for injury and pain, MS/Extremity: Negative for injury and deformity, Skin: Negative for injury, rash, and discoloration, Neuro: Negative for headache, weakness, numbness, tingling, and seizure, Psych: Negative for depression, anxiety, suicide ideation, homicidal ideation, and hallucinations. 20:39 ENT: Positive for dental pain. 20:39 All other systems are negative. Exam: 20:39 Head/Face: atraumatic. Eyes: EOMI, no conjunctival erythema appreciated [facility] 20:39 Neck: Trachea midline, Supple Chest/axilla: Normal chest wall appearance and motion. Cardiovascular: Regular rate and rhythm. No edema appreciated Respiratory: Normal respirations, no respiratory distress appreciated Abdomen/GI: Non distended, soft Back: Normal ROM Skin: General appearance color normal MS/ Extremity: Moves all extremities, no obvious deformities appreciated, no edema noted to the lower extremities Neuro: Awake and alert Psych: Behavior is normal, Mood is normal, Patient is cooperative and pleasant 20:39 Constitutional: The patient appears alert, awake, uncomfortable. 20:39 ENT: Dental exam: dental caries, that is moderate, specifically in the lower right first molar (#30), lower right second molar (#31) and lower right third molar (#32), no submandibular tenderness appreciated. Vital Signs: 17:02 BP 173 / 84; Pulse 76; Resp 18; Temp 99.0(O); Pulse Ox 100% on R/A; Weight 102.06 kg; ld1 Height 5 ft. 1 in. (154.94 cm); Pain 10/10; 20:54 BP 157 / 86; Pulse 80; Resp 16; Pulse Ox 98% on R/A; ab2 17:02 Body Mass Index 42.51 (102.06 kg, 154.94 cm) ld1 Procedures: 20:43 Performed dental block. Inferior alveolar block using 0.5% marcaine provided a small [facility] amount of relief. . MDM: 19:29 Patient medically screened. [facility] 20:43 Data reviewed: vital signs, nurses notes. Counseling: I had a detailed discussion with [facility] the patient and/or guardian regarding: the historical points, exam findings, and any diagnostic results supporting the discharge/admit diagnosis, the need for outpatient follow up, to return to the emergency department if symptoms worsen or persist or if there are any questions or concerns that arise at home. ED course: Patient is alert and non toxic in appearance in the ED. I do not suspect ludwigs. Patient advised to follow up with dentist and otherwise given strict return precautions. Patient understood and agrees with the plan of care. . Administered Medications: 18:42 Drug: HYDROcodone-acetaminophen 5 mg-325 mg 1 tabs Route: PO; ww 20:12 Drug: Marcaine (bupivacaine) (0.5 %) 10 ml {Note: Adminstered by PA .} Volume: 10 ml; ab2 Route: Infiltration; Disposition Summary: 09/25/21 20:46 Discharge Ordered Location: Home [facility] Condition: Stable [facility] Diagnosis - Dental Pain [facility] Followup: [facility] - With: Private Physician - When: 2 - 3 days - Reason: Recheck today's complaints, Continuance of care, Re-evaluation by your physician Discharge Instructions: - Discharge Summary Sheet [facility] - Dental Pain [facility] Forms: - Medication Reconciliation Form [facility] - Thank You Letter [facility] - Antibiotic Education [facility] - Prescription Opioid Use [facility] Prescriptions: - Augmentin 875-125 mg Oral Tablet - take 1 tablet by ORAL route every 12 hours for 10 days; 20 tablet; Refills: 0, [facility] Product Selection Permitted - Ultracet 37.5-325 mg Oral Tablet - take 1 tablet by ORAL route every 6 hours - for up to 5 days; do not exceed 8 jmm tablets per day.; 12 tablet; Refills: 0, Product Selection Permitted Addendum: 09/29/2021 07:11 Co-signature as Attending Physician, Son Valdovinos MD I agree with the assessment and r n plan of care. Attestation: The patient's history, exam findings, diagnostics, and a summary of any interventions or procedures was reviewed in detail with Mohinder BLUM. Signatures: Mohinder Ramos PA PA jmm Nieto, Roman, MD MD rn Dibbern, Lauren, RN RN ld1 China Bahena RN RN ww Blaise Gerardo ab2
--- NOTE | 2021-09-25 20:47 | ER ---
Nurse's Notes [facility] Name: Randall Morillo Age: 41 yrs Sex: Female : 1980 Arrival Date: 09/25/2021 Time: 16:38 Bed 10 Private MD: Diagnosis: Dental Pain Presentation: 09/25 17:02 Chief complaint: Patient states: years ago several of my teeth on the right bottom of ld1 my mouth broke off. Today I woke up and have been in really bad pain. Coronavirus screen: At this time, the client does not indicate any symptoms associated with coronavirus-19. Ebola Screen: No symptoms or risks identified at this time. Initial Sepsis Screen: Does the patient meet any 2 criteria? No. Patient's initial sepsis screen is negative. Does the patient have a suspected source of infection? No. Patient's initial sepsis screen is negative. Risk Assessment: Do you want to hurt yourself or someone else? Patient reports no desire to harm self or others. Onset of symptoms was September 25, 2021. 17:02 Method Of Arrival: Ambulatory ld1 17:02 Acuity: ALEIDA 4 ld1 Triage Assessment: 17:04 General: Appears in no apparent distress. comfortable, Behavior is calm, cooperative, ld1 appropriate for age. Pain: Complains of pain in lower right first bicuspid, lower right second bicuspid, lower right first molar, lower right second molar and lower right third molar Pain does not radiate. Pain currently is 10 out of 10 on a pain scale. Neuro: Level of Consciousness is awake, alert, obeys commands, Oriented to person, place, time, situation. Cardiovascular: Capillary refill < 3 seconds Patient's skin is warm and dry. Respiratory: Airway is patent Respiratory effort is even, unlabored, Respiratory pattern is. 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 - Social history:: Smoking status: Patient denies any tobacco usage or history of. Patient/guardian denies using alcohol. Screenin:42 Abuse screen: Denies threats or abuse. Denies injuries from another. Nutritional ww screening: No deficits noted. Tuberculosis screening: No symptoms or risk factors identified. Fall Risk None identified. Assessment: 18:42 General: Appears comfortable, Behavior is calm, cooperative. Pain: Complains of pain in ww forehead, right cheek, right ear, right confucianist, left confucianist and right jaw. Neuro: Level of Consciousness is awake, alert, obeys commands, Oriented to person, place, time, situation, Gait is steady, Speech is normal. Respiratory: Airway is patent Respiratory effort is even, unlabored, Respiratory pattern is regular, symmetrical. GI: No signs and/or symptoms were reported involving the gastrointestinal system. : No signs and/or symptoms were reported regarding the genitourinary system. Derm: Skin is healthy with good turgor. Vital Signs: 17:02 BP 173 / 84; Pulse 76; Resp 18; Temp 99.0(O); Pulse Ox 100% on R/A; Weight 102.06 kg; ld1 Height 5 ft. 1 in. (154.94 cm); Pain 10/10; 20:54 BP 157 / 86; Pulse 80; Resp 16; Pulse Ox 98% on R/A; ab2 17:02 Body Mass Index 42.51 (102.06 kg, 154.94 cm) ld1 ED Course: 16:38 Patient arrived in ED. mr 17:04 Triage completed. ld1 17:04 Arm band placed on right wrist. EKG completed in triage. Results shown to MD. EKG ld1 completed in triage. Results shown to MD. 18:35 Mohinder Ramos PA is PHCP. [facility] 18:35 Son Valdovinos MD is Attending Physician. [facility] 18:42 Patient has correct armband on for positive identification. Bed in low position. Call ww light in reach. Side rails up X 1. 19:42 Blaise Gerardo is Primary Nurse. ab2 20:55 No provider procedures requiring assistance completed. Patient did not have IV access ab2 during this emergency room visit. Administered Medications: 18:42 Drug: HYDROcodone-acetaminophen 5 mg-325 mg 1 tabs Route: PO; ww 20:12 Drug: Marcaine (bupivacaine) (0.5 %) 10 ml {Note: Adminstered by PA .} Volume: 10 ml; ab2 Route: Infiltration; Outcome: 20:46 Discharge ordered by MD. pandey 20:55 Discharged to home ambulatory. ab2 20:55 Condition: good 20:55 Discharge instructions given to patient, Instructed on discharge instructions, follow up and referral plans. medication usage, Demonstrated understanding of instructions, follow-up care, medications, Prescriptions given X 2. 20:55 Patient left the ED. ab2 Signatures: Mohinder Ramos PA PA jmm Rivera, Mary mr Yissel Ochoa, RN RN ld1 China Bahena, RN RN ww Blaise Gerardo ab2
[2021-09-25 22:05] VITALS: TEMP 99
[2021-09-25 22:06] VITALS: BP 157/86; O2SAT 98
== END 2021-09-25 20:55 | disposition home or self-care (01) ==
LOC: ER 16:35
DX: K08.89 Other specified disorders of teeth and supporting structures (principal)
CPT/HCPCS: 99283

== ENCOUNTER 2024-06-07 09:30 | Emergency (ER) | payer OTHER ==
[2024-06-07] MEDS ORDERED: NA CHLORIDE 0.9% 1,000 ML ONE ×2 (09:50→11:33)
[2024-06-07 10:25] LABS: Absolute Basophils 0.1 K/uL (0-0.5); Absolute Eosinophils 0.3 K/uL (0-0.5); Absolute Lymphocytes (CBC) 2.5 K/uL (0.7-4.9); Absolute Monocytes 0.8 K/uL (0.1-1.3); Absolute Neutrophil 2.9 K/uL (1.8-8.0); Basophils % 0.9 % (0-1.3); Hematocrit 37.7 % (36.0-45.0); Hemoglobin 12.6 g/dL (12.0-15.0); Lymphocytes % 38.8 % (15.3-44.8); MCH 27.6 pg (27.0-35.0); MCHC 33.5 g/dL (32.0-36.0); MCV 82.6 fL (80-100); MPV 9.1 fL (7.6-11.3); Monocytes % 12.2 % (3.3-12.3); Neutrophils % 44.1 % (41.7-73.7); Nucleated Red Blood Cells % 0.1 % (0-0); Platelets 324 thou/uL (152-406); RBC Red Blood Cell Count 4.56 M/uL (3.86-4.86); Red Cell Distribution Width 13.7 % (12.1-15.2)
[2024-06-07 11:04] LABS: Albumin 2.9 g/dL (3.4-5.0); Albumin/Globulin Ratio 0.6 (1.1-1.8); Anion Gap 13.1 mEq/L (5.0-15.0); Bilirubin Total 0.3 mg/dL (0.2-1.0); Globulin 4.6 g/dL (2.3-3.5); Potassium 3.1 mEq/L (3.5-5.1); Protein, Total 7.5 g/dL (6.4-8.2)
[2024-06-07 11:17] LABS: Specific Gravity > 1.030 (1.005-1.030); Sqamous Epithelial 20-50 /HPF (None Seen); Transitional Epithelial <5 /HPF (None Seen); Urine Bacteria 20-50 /HPF (<20); Urine Bilirubin 1+ (Negative); Urine Blood Negative (Negative); Urine Clarity Extremely Turbid (Clear); Urine Color Yellow (Yellow); Urine Culture Reflex Order NOT NEEDED; Urine Glucose NEGATIVE (Negative); Urine Ketones 4+ (Over) (Negative); Urine Microscopic Reflex YN ORDER UMIC; Urine Mucus 4+ /HPF (None Seen); Urine Nitrite NEGATIVE (Negative); Urine Protein 2+ (Negative); Urine RBC <5 /HPF (None Seen); Urine Urobilinogen 2+ (Normal); Urine WBC <5 /HPF (<5)
[2024-06-07] MEDS ORDERED: NITROFURAN MACRO 100 MG CAP PO ONE (11:33)
[2024-06-07] MEDS ORDERED: POTASSIUM 25 MEQ EFFERV TAB ONE (11:33)
--- NOTE | 2024-06-07 12:28 | ER ---
Nurse's Notes [facility] Name: Randall Morillo Age: 44 yrs Sex: Female : 1980 Arrival Date: 06/07/2024 Time: 09:30 Bed 13 Private MD: Diagnosis: Hypokalemia;Dehydration Presentation: 06/07 09:46 Chief complaint: Patient states: she had gastric bypass 3 weeks ago and has been having kc6 issues with low BP and dizziness ever since. reports BP as low as 80/60. pt also states, "I feel like I can't get hydrated.". Coronavirus screen: At this time, the client does not indicate any symptoms associated with coronavirus-19. Ebola Screen: No symptoms or risks identified at this time. Initial Sepsis Screen: Does the patient meet any 2 criteria? No. Patient's initial sepsis screen is negative. Does the patient have a suspected source of infection? No. Patient's initial sepsis screen is negative. Risk Assessment: Do you want to hurt yourself or someone else? Patient reports no desire to harm self or others. Onset of symptoms was June 07, 2024. 09:46 Method Of Arrival: Ambulatory 6 09:46 Acuity: ALEIDA 3 kc6 Triage Assessment: 09:48 General: Appears in no apparent distress. comfortable, well groomed, well developed, kc6 Behavior is calm, cooperative, appropriate for age. Pain: Denies pain. EENT: No signs and/or symptoms were reported regarding the EENT system. Neuro: Level of Consciousness is awake, alert, obeys commands, Oriented to person, place, time, situation, Appropriate for age Reports dizziness. Cardiovascular: Capillary refill < 3 seconds. Respiratory: Airway is patent Trachea midline Respiratory effort is even, unlabored, Respiratory pattern is regular, symmetrical. GI: No signs and/or symptoms were reported involving the gastrointestinal system. : No signs and/or symptoms were reported regarding the genitourinary system. Derm: No signs and/or symptoms reported regarding the dermatologic system. Skin is intact, is healthy with good turgor, Skin is pink, warm \\T\\ dry. Musculoskeletal: No signs and/or symptoms reported regarding the musculoskeletal system. Circulation, motion, and sensation intact. Capillary refill < 3 seconds, Range of motion: intact in all extremities. 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 - Infectious Disease History:: Denies. - Social history:: Smoking status: Patient denies any tobacco usage or history of. Screenin:50 [facility] ED Fall Risk Assessment (Adult) History of falling in the last 3 months, kc6 including since admission No falls in past 3 months (0 pts) Confusion or Disorientation No (0 pts) Intoxicated or Sedated No (0 pts) Impaired Gait No (0 pts) Mobility Assist Device Used No (0 pt) Altered Elimination No (0 pt) Score/Fall Risk Level 0 - 2 = Low Risk Oriented to surroundings. Abuse screen: Denies threats or abuse. Denies injuries from another. Nutritional screening: No deficits noted. Tuberculosis screening: No symptoms or risk factors identified. Assessment: 09:50 Reassessment: please see triage. kc6 10:50 Reassessment: Patient appears in no apparent distress at this time. No changes from [facility] previously documented assessment. Patient and/or family updated on plan of care and expected duration. Pain level reassessed. Patient is alert, oriented x 3, equal unlabored respirations, skin warm/dry/pink. 11:40 Reassessment: Patient appears in no apparent distress at this time. No changes from [facility] previously documented assessment. Patient and/or family updated on plan of care and expected duration. Pain level reassessed. Patient is alert, oriented x 3, equal unlabored respirations, skin warm/dry/pink. 12:35 Reassessment: Patient and/or family updated on plan of care and expected duration. Pain rs5 level reassessed. Patient is alert, oriented x 3, equal unlabored respirations, skin warm/dry/pink. Vital Signs: 09:46 BP 137 / 75 LA Supine (auto/lg); Pulse 82; Resp 16 S; Temp 98.1(O); Pulse Ox 100% on kc6 R/A; Pain 0/10; 09:50 BP 122 / 76 LA Sitting (auto/lg); Pulse 80; kc6 09:50 BP 115 / 81 LA Standing (auto/lg); Pulse 104; kc6 10:28 BP 128 / 75; Pulse 72; Resp 18 S; Pulse Ox 100% on R/A; kc6 11:40 BP 124 / 73; Pulse 83; Resp 16 S; Pulse Ox 100% on R/A; kc6 12:35 BP 126 / 77; Pulse 75; Resp 17; Pulse Ox 99% on R/A; rs5 09:46 Pain Scale: Adult 6 ED Course: 09:34 Patient arrived in ED. im 09:34 Latasha Nails FNP-C is PHCP. kb 09:34 Son Valdovinos MD is Attending Physician. kb 09:35 Antionette Guerra RN is Primary Nurse. kc6 09:48 Triage completed. kc6 09:48 Arm band placed on. kc6 09:50 Patient has correct armband on for positive identification. Bed in low position. Call [facility] light in reach. Side rails up X 1. Adult w/ patient. Pulse ox on. NIBP on. Door closed. Noise minimized. Lights dimmed. Pillow given. 09:50 Patient maintains SpO2 saturation greater than 95% on room air. kc6 10:09 Missed attempt(s): 22 gauge in right forearm. Inserted saline lock: 22 gauge in left kc6 hand, using aseptic technique. Blood collected. Flushed with 10 mL NS. 12:35 Provided Education on: discharge instructions . rs5 12:35 No provider procedures requiring assistance completed. rs5 12:35 IV discontinued, intact, bleeding controlled, No redness/swelling at site. Pressure rs5 dressing applied. Administered Medications: 10:09 Drug: NS 0.9% IV 1000 ml IV at 1 bolus Per protocol; to be given as a bolus over 60 kc6 minutes Route: IV; Rate: 1 bolus; Site: left hand; 11:10 Follow up: Response: No adverse reaction; IV Status: Completed infusion; IV Intake: rs5 1000ml 11:39 Drug: NS 0.9% IV 1000 ml IV at 1000 ml once; to be given as a bolus over 60 minutes kc6 Route: IV; Rate: 1000 ml; Site: left hand; 12:20 Follow up: IV Status: Completed infusion rs5 11:39 Drug: Potassium PO Effervescent Tablet 50 mEq PO once; dissolve in 4 ounces of water or kc6 juice Route: PO; 12:20 Follow up: Response: No adverse reaction rs5 11:39 Drug: Macrobid PO 100 mg PO once; administer with food Route: PO; kc6 12:20 Follow up: Response: No adverse reaction rs5 Medication: 12:00 VIS not applicable for this client. rs5 Intake: 11:10 IV: 1000ml; Total: 1000ml. rs5 Outcome: 12:27 Discharge ordered by MD. ofrd 12:35 Discharged to home ambulatory, rs5 12:35 Condition: stable 12:35 Discharge instructions given to patient, family, Instructed on discharge instructions, follow up and referral plans. Demonstrated understanding of instructions, follow-up care, 12:37 Patient left the ED. rs5 Signatures: Latasha Nails, CAN LINE OPERATOR-Kaylynn MARLOW-Antionette Coles RN RN kc6 Minh Jones RN RN rs5 Michelle Marin
--- NOTE | 2024-06-07 12:28 | EDPHYS ---
Physician Documentation [facility] Name: Randall Morillo Age: 44 yrs Sex: Female : 1980 Arrival Date: 06/07/2024 Time: 09:30 Bed 13 Private MD: ED Physician Son Valdovinos HPI: 06/07 11:30 This 44 yrs old Black Female presents to ER via Ambulatory with complaints of Post kb bariatric surgery 3 weeks ago, dehydration. 11:30 Pt is a 44 year old female who presents for dehydration. States she had a gastric kb bypass 3 weeks ago and has felt dehydrated since then with intermittent dizziness when she moves too fast. Denies n/v/d, abd pain, fever. 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 - Infectious Disease History:: Denies. - Social history:: Smoking status: Patient denies any tobacco usage or history of. ROS: 11:19 Constitutional: As per HPI kb Exam: 11:19 Constitutional: This is a well developed, well nourished patient who is awake, alert, kb and in no acute distress. Head/Face: Normocephalic, atraumatic. ENT: Moist Mucous membranes Cardiovascular: Regular rate Respiratory: Respirations even and unlabored. No increased work of breathing. Talking in full sentences Abdomen/GI: Soft, non-tender. No distention Skin: Warm, dry with normal turgor. Normal color. MS/ Extremity: Pulses equal, no cyanosis. Neurovascular intact. Full, normal range of motion. Neuro: Awake and alert, GCS 15, oriented to person, place, time, and situation. Moves all extremities. Normal gait. Vital Signs: 09:46 BP 137 / 75 LA Supine (auto/lg); Pulse 82; Resp 16 S; Temp 98.1(O); Pulse Ox 100% on kc6 R/A; Pain 0/10; 09:50 BP 122 / 76 LA Sitting (auto/lg); Pulse 80; kc6 09:50 BP 115 / 81 LA Standing (auto/lg); Pulse 104; kc6 10:28 BP 128 / 75; Pulse 72; Resp 18 S; Pulse Ox 100% on R/A; kc6 11:40 BP 124 / 73; Pulse 83; Resp 16 S; Pulse Ox 100% on R/A; kc6 12:35 BP 126 / 77; Pulse 75; Resp 17; Pulse Ox 99% on R/A; rs5 09:46 Pain Scale: Adult kc6 MDM: 09:46 Patient medically screened. kb 11:20 Differential diagnosis: dehydration, abnormal electrolytes, uti. Data reviewed: vital kb signs, nurses notes. 11:31 Test considered but Not performed: CT: ct abd considered but pt has no abd tenderness, kb surgical incisions healing well without erythema, dehiscence or drainage. . Counseling: I had a detailed discussion with the patient and/or guardian regarding the historical points, exam findings, and any diagnostic results supporting the discharge/admit diagnosis, lab results, the need for outpatient follow up, a family practitioner, to return to the emergency department if symptoms worsen or persist or if there are any questions or concerns that arise at home. 06/07 09:46 Order name: CBC with Diff; Complete Time: 10:29 kb 06/07 09:46 Order name: CMP; Complete Time: 11:06 kb 06/07 09:46 Order name: Lipase; Complete Time: 11:06 kb 06/07 09:48 Order name: Urinalysis w/ reflexes; Complete Time: 11:18 kb 06/07 09:46 Order name: IV Saline Lock; Complete Time: 10:09 kb 06/07 09:46 Order name: Labs collected and sent; Complete Time: 10:09 kb 06/07 09:48 Order name: Orthostatics; Complete Time: 09:51 kb Administered Medications: 10:09 Drug: NS 0.9% IV 1000 ml IV at 1 bolus Per protocol; to be given as a bolus over 60 kc6 minutes Route: IV; Rate: 1 bolus; Site: left hand; 11:10 Follow up: Response: No adverse reaction; IV Status: Completed infusion; IV Intake: rs5 1000ml 11:39 Drug: NS 0.9% IV 1000 ml IV at 1000 ml once; to be given as a bolus over 60 minutes kc6 Route: IV; Rate: 1000 ml; Site: left hand; 12:20 Follow up: IV Status: Completed infusion rs5 11:39 Drug: Potassium PO Effervescent Tablet 50 mEq PO once; dissolve in 4 ounces of water or kc6 juice Route: PO; 12:20 Follow up: Response: No adverse reaction rs5 11:39 Drug: Macrobid PO 100 mg PO once; administer with food Route: PO; kc6 12:20 Follow up: Response: No adverse reaction rs5 Disposition Summary: 06/07/24 12:27 Discharge Ordered Notes: Location: Home kb Condition: Stable kb Diagnosis - Hypokalemia kb - Dehydration kb Followup: kb - With: Emergency Department - When: As needed - Reason: Worsening of condition Followup: kb - With: Private Physician - When: 2 - 3 days - Reason: Recheck today's complaints, Continuance of care, Re-evaluation by your physician Discharge Instructions: - Discharge Summary Sheet kb - Dehydration, Adult kb - Hypokalemia kb Forms: - Medication Reconciliation Form kb - Antibiotic Education kb - Prescription Opioid Use kb - Patient Portal Instructions kb - Leadership Thank You Letter kb Signatures: Dispatcher [employer] EDMS Latasha Nails, WORM FARMER-C WORM FARMER-Antionette Coles RN RN kc6 Minh Jones RN rs5 Corrections: (The following items were deleted from the chart) 09:46 09:46 CBC+H.LAB.BRZ ordered. EDMS EDMS 09:46 09:46 COMPREHENSIVE METABOLIC PANEL+C.LAB.BRZ ordered. EDMS EDMS 09:46 09:46 LIPASE+C.LAB.BRZ ordered. EDMS EDMS
[2024-06-07 13:04] VITALS: O2SAT 100
[2024-06-07 13:16] VITALS: TEMP 98.5
[2024-06-07 13:17] VITALS: BP 129/87
== END 2024-06-07 12:37 | disposition home or self-care (01) ==
LOC: ER 09:30
DX: E87.6 Hypokalemia (principal); E86.0 Dehydration; Z98.84 Bariatric surgery status
CPT/HCPCS: 85025; 81001; 36415; 83690; 80053; J7030 ×2; 96360; 96361; 99284

== ENCOUNTER 2024-12-25 00:24 | Emergency (ER) | payer OTHER ==
[2024-12-25] MEDS ORDERED: NA CHLORIDE 0.9% 1,000 ML ONE (01:25)
[2024-12-25] MEDS ORDERED: KETOROLAC 30 MG/ML INJ ONE (01:25)
[2024-12-25 01:37] LABS: Absolute Basophils 0.1 K/uL (0-0.5); Absolute Eosinophils 0.1 K/uL (0-0.5); Absolute Lymphocytes (CBC) 4.7 K/uL (0.7-4.9); Absolute Monocytes 0.7 K/uL (0.1-1.3); Absolute Neutrophil 4.3 K/uL (1.8-8.0); Eosinophils % 1.3 % (0-4.4); Hematocrit 39.5 % (36.0-45.0); Hemoglobin 13.2 g/dL (12.0-15.0); Lymphocytes % 47.3 % (15.3-44.8); MCH 28.4 pg (27.0-35.0); MCHC 33.4 g/dL (32.0-36.0); MCV 85.1 fL (80-100); MPV 8.6 fL (7.6-11.3); Monocytes % 7.3 % (3.3-12.3); Neutrophils % 43.1 % (41.7-73.7); Platelets 284 thou/uL (152-406); RBC Red Blood Cell Count 4.65 M/uL (3.86-4.86)
[2024-12-25 02:02] LABS: Specific Gravity > 1.030 (1.005-1.030)
[2024-12-25 02:03] LABS: Specific Gravity > 1.030 (1.005-1.030); Urine Bacteria <20 /HPF (<20); Urine Bilirubin NEGATIVE (Negative); Urine Blood Negative (Negative); Urine Clarity Extremely Turbid (Clear); Urine Color Yellow (Yellow); Urine Glucose NEGATIVE (Negative); Urine Ketones NEGATIVE (Negative); Urine Micro Reflex YN NO BILL MICROSCOPIC; Urine Mucus 1+ /HPF (None Seen); Urine Nitrite NEGATIVE (Negative); Urine Protein TRACE (Negative); Urine RBC None Seen /HPF (None Seen); Urine Urobilinogen 1+ (Normal); Urine WBC <5 /HPF (<5); Urine pH 5.5 (5.0-7.0)
[2024-12-25 03:10] LABS: Albumin 2.9 g/dL (3.4-5.0); Albumin/Globulin Ratio 0.7 (1.1-1.8); Anion Gap 7.9 mEq/L (5.0-15.0); Bilirubin Total 0.3 mg/dL (0.2-1.0); Globulin 4.4 g/dL (2.3-3.5); Protein, Total 7.3 g/dL (6.4-8.2)
[2024-12-25 03:19] LABS: Potassium 3.9 mEq/L (3.5-5.1)
--- NOTE | 2024-12-25 05:09 | ER ---
Nurse's Notes [facility] Name: Randall Morillo Age: 44 yrs Sex: Female : 1980 Arrival Date: 12/25/2024 Time: 00:24 Bed 16 Private MD: Diagnosis: Abdominal pain, Generalized Presentation: 12/25 01:04 Chief complaint: Patient states: PT C/O LLQ PAIN THAT BEGAN AT APPROX 1930 br2 (SHARP/STABBING/CONSTANT). DENIES URINARY SYMPTOMS OR RADIATION. Coronavirus screen: Client denies travel out of the [place] in the last 14 days. Ebola Screen: Patient denies exposure to infectious person. Initial Sepsis Screen: Does the patient meet any 2 criteria? No. Patient's initial sepsis screen is negative. Does the patient have a suspected source of infection? No. Patient's initial sepsis screen is negative. Risk Assessment: Do you want to hurt yourself or someone else? Patient reports no desire to harm self or others. Onset of symptoms was December 24, 2024 at 19:30. 01:04 Method Of Arrival: Ambulatory br2 01:04 Acuity: ALEIDA 3 br2 Triage Assessment: 01:06 General: Appears uncomfortable, Behavior is calm, cooperative. Pain: Complains of pain br2 in left lower quadrant Pain does not radiate. Pain currently is 9 out of 10 on a pain scale. 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 - Infectious Disease History:: Denies. - Social history:: Smoking status: Patient denies any tobacco usage or history of. Patient uses alcohol, occasionally. Patient/guardian denies using street drugs. Screenin:[facility] ED Fall Risk Assessment (Adult) History of falling in the last 3 months, lg3 including since admission No falls in past 3 months (0 pts) Confusion or Disorientation No (0 pts) Intoxicated or Sedated No (0 pts) Impaired Gait No (0 pts) Mobility Assist Device Used No (0 pt) Altered Elimination No (0 pt) Score/Fall Risk Level 0 - 2 = Low Risk Oriented to surroundings, Maintained a safe environment, Educated pt \T\ family on fall prevention, incl call for assistance when getting out of bed, Assessed \T\ reinforced patient's understanding of fall precautions. Abuse screen: Denies threats or abuse. Denies injuries from another. Nutritional screening: No deficits noted. Tuberculosis screening: No symptoms or risk factors identified. Assessment: 01:36 General: Appears in no apparent distress. comfortable, Behavior is calm, cooperative. lg3 Pain: Complains of pain in left lower quadrant Pain radiates to back. Neuro: No deficits noted. [place] Agitation-Sedation Scale (RASS): 0 - Alert and Calm Level of Consciousness is awake, alert, obeys commands, Oriented to person, place, time, situation. Cardiovascular: No deficits noted. Denies chest pain, shortness of breath, Capillary refill < 3 seconds Clubbing of nail beds is absent JVD is absent Patient's skin is warm and dry. Respiratory: No deficits noted. Airway is patent Respiratory effort is even, unlabored, Respiratory pattern is regular, symmetrical. GI: Abdomen is round non-distended, obese, Bowel sounds present X 4 quads. Abd is soft and non tender X 4 quads. Reports lower abdominal pain, nausea, vomiting. : No signs and/or symptoms were reported regarding the genitourinary system. EENT: No deficits noted. No signs and/or symptoms were reported regarding the EENT system. Derm: No deficits noted. No signs and/or symptoms reported regarding the dermatologic system. Skin is intact, is healthy with good turgor, Skin is dry, Skin is normal, Skin temperature is warm. Musculoskeletal: No deficits noted. No signs and/or symptoms reported regarding the musculoskeletal system. Circulation, motion, and sensation intact. Range of motion: intact in all extremities. 03:04 Reassessment: Patient appears in no apparent distress at this time. Patient and/or lg3 family updated on plan of care and expected duration. Pain level reassessed. Patient is alert, oriented x 3, equal unlabored respirations, skin warm/dry/pink. Patient states feeling better. 05:03 Reassessment: Patient appears in no apparent distress at this time. Patient and/or lg3 family updated on plan of care and expected duration. Pain level reassessed. Patient is alert, oriented x 3, equal unlabored respirations, skin warm/dry/pink. Patient states feeling better. Patient states symptoms have improved. Vital Signs: 01:04 BP 150 / 93; Pulse 68; Resp 18; Temp 97.4(TE); Pulse Ox 100% on R/A; Weight 86.64 kg; br2 Height 5 ft. 1 in. ; Pain 9/10; 03:04 BP 129 / 86; Pulse 64; Resp 17 S; Pulse Ox 100% on R/A; lg3 05:03 BP 126 / 74; Pulse 69; Resp 17 S; Pulse Ox 100% on R/A; lg3 01:04 Body Mass Index 36.09 (86.64 kg, 154.94 cm) br2 01:04 Pain Scale: Adult br2 ED Course: 00:35 Patient arrived in ED. gm2 00:38 Asad Armijo PA is PHCP. cp 00:38 Charlette Duckworth MD is Attending Physician. cp 01:06 Triage completed. br2 01:06 Arm band placed on. br2 01:20 Inserted saline lock: 20 gauge in right antecubital area, using aseptic technique. sa1 Blood collected. Flushed with 10 mL NS. 01:20 Initial lab(s) drawn, by me, sent to lab. sa1 01:36 Ely Weldon, RN is Primary Nurse. lg3 01:36 Patient has correct armband on for positive identification. Placed in gown. Bed in low lg3 position. Call light in reach. Side rails up X 1. Client placed on continuous cardiac and pulse oximetry monitoring. NIBP monitoring applied. Door closed. Noise minimized. Warm blanket given. Pillow given. 01:43 Urine collected: clean catch specimen, clear. sa1 03:34 CT Abd/Pelvis- W/WO Contrast In Process Unspecified. EDMS 05:15 No provider procedures requiring assistance completed. IV discontinued, intact, lg3 bleeding controlled, No redness/swelling at site. Pressure dressing applied. Administered Medications: 01:38 Drug: TORadol - Ketorolac IVP 15 mg IVP once Route: IVP; Site: right antecubital; lg3 01:51 Follow up: Response: No adverse reaction; Marked relief of symptoms lg3 01:38 Drug: NS 0.9% IV 1000 ml IV at 1 bolus Per protocol; to be given as a bolus over 60 lg3 minutes Route: IV; Rate: 1 bolus; Site: right antecubital; 05:03 Follow up: Response: No adverse reaction; IV Status: Completed infusion; IV Intake: lg3 1000ml Medication: 01:36 VIS not applicable for this client. lg3 Intake: 05:03 IV: 1000ml; Total: 1000ml. lg3 Outcome: 05:08 Discharge ordered by . sp3 05:15 Discharged to home ambulatory, with significant other, 3 05:15 Condition: stable 05:15 Discharge instructions given to patient, Instructed on discharge instructions, follow up and referral plans. Demonstrated understanding of instructions, follow-up care, 05:16 Patient left the ED. lg3 Signatures: Dispatcher [employer] EDMS Asad Armijo PA PA cp Able, Lacie, RN RN lg3 Charlette Duckworth MD MD sp3 Cristiane Suggs gm2 Sultan Jo-Ann sa1 Na Harris RN RN br2
--- NOTE | 2024-12-25 05:09 | EDPHYS ---
Physician Documentation [facility] Name: Randall Morillo Age: 44 yrs Sex: Female : 1980 Arrival Date: 12/25/2024 Time: 00:24 Bed 16 Private MD: ED Physician Charlette uDckworth HPI: 12/25 00:45 This 44 yrs old Black Female presents to ER via Ambulatory with complaints of Flank cp Pain. 00:45 The patient complains of pain in the left lower quadrant. Onset: The symptoms/episode cp began/occurred today. Associated signs and symptoms: Pertinent negatives: diarrhea, fever, hematuria, pain radiating to the lower extremities, vomiting, constipation. 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 - Infectious Disease History:: Denies. - Social history:: Smoking status: Patient denies any tobacco usage or history of. Patient uses alcohol, occasionally. Patient/guardian denies using street drugs. ROS: 00:50 Constitutional: Negative for fever, poor PO intake, cp 00:50 Eyes: Negative for injury, pain, redness, and discharge, cp 00:50 Cardiovascular: Negative for chest pain, 00:50 Respiratory: Negative for cough, shortness of breath, wheezing, 00:50 Abdomen/GI: Positive for abdominal pain, Negative for vomiting, diarrhea, constipation, 00:50 Back: Positive for flank pain, on the left, 00:50 : Negative for urinary symptoms, 00:50 All other systems are negative, Exam: 00:55 Constitutional: The patient appears in no acute distress, alert, awake, non-toxic, well cp developed, well nourished, obese, 00:55 Head/Face: Normocephalic, atraumatic. cp 00:55 Eyes: Periorbital structures: appear normal, Conjunctiva: normal, no exudate, no injection, Sclera: no appreciated abnormality, Lids and lashes: appear normal, bilaterally, 00:55 ENT: External ear(s): are unremarkable, Nose: is normal, Mouth: Lips: moist, Oral mucosa: moist, Posterior pharynx: is normal, airway is patent, no erythema, no exudate, 00:55 Chest/axilla: Inspection: normal, 00:55 Cardiovascular: Rate: normal, 00:55 Respiratory: the patient does not display signs of respiratory distress, Respirations: normal, no use of accessory muscles, no retractions, labored breathing, is not present, 00:55 Abdomen/GI: Inspection: abdomen appears normal, Bowel sounds: active, all quadrants, Palpation: soft, in all quadrants, moderate abdominal tenderness, in the left lower quadrant, 00:55 Back: CVA tenderness, is absent, 00:55 Neuro: Orientation: to person, place \T\ time. Mentation: is normal, Vital Signs: 01:04 BP 150 / 93; Pulse 68; Resp 18; Temp 97.4(TE); Pulse Ox 100% on R/A; Weight 86.64 kg; br2 Height 5 ft. 1 in. ; Pain 9/10; 03:04 BP 129 / 86; Pulse 64; Resp 17 S; Pulse Ox 100% on R/A; lg3 05:03 BP 126 / 74; Pulse 69; Resp 17 S; Pulse Ox 100% on R/A; lg3 01:04 Body Mass Index 36.09 (86.64 kg, 154.94 cm) br2 01:04 Pain Scale: Adult br2 MDM: 00:53 Medical Screening Exam initiated cp 05:07 Data reviewed: vital signs, nurses notes, lab test result(s), radiologic studies. ED sp3 course: Workup negative. CT reviewed by me which demonstrates no findings on my read. Attending read still pending. Patient does not want to stay any longer and is being discharged home was called back for any positive findings.. 12/25 00:40 Order name: UA W/ Microscopic; Complete Time: 02:07 cp 12/25 02:07 Interpretation: Normal except: [facility] Extremely Turbid; Urine SG > 1.030; UPROT TRACE; cp UUROB 1+. 12/25 00:40 Order name: Test, Urine; Complete Time: 02:07 cp 12/25 01:03 Order name: CBC with Diff; Complete Time: 02:07 cp 12/25 02:08 Interpretation: Reviewed. cp 12/25 01:03 Order name: CMP; Complete Time: 05:07 cp 12/25 01:03 Order name: Lipase; Complete Time: 05:07 cp 12/25 01:18 Order name: CT Abd/Pelvis- W/WO Contrast cp 12/25 01:03 Order name: IV Saline Lock; Complete Time: 01:38 cp 12/25 01:03 Order name: Labs collected and sent; Complete Time: 01:38 cp 12/25 01:49 Order name: Labs - recollect needed: green top recollect ; Complete Time: 02:02 kmf Administered Medications: 01:38 Drug: TORadol - Ketorolac IVP 15 mg IVP once Route: IVP; Site: right antecubital; lg3 01:51 Follow up: Response: No adverse reaction; Marked relief of symptoms lg3 01:38 Drug: NS 0.9% IV 1000 ml IV at 1 bolus Per protocol; to be given as a bolus over 60 lg3 minutes Route: IV; Rate: 1 bolus; Site: right antecubital; 05:03 Follow up: Response: No adverse reaction; IV Status: Completed infusion; IV Intake: lg3 1000ml Disposition: 05:08 Co-signature as Attending Physician, Charlette Duckworth MD I agree with the assessment and sp3 plan of care. Disposition Summary: 12/25/24 05:08 Discharge Ordered Notes: Location: Home sp3 Condition: Stable sp3 Diagnosis - Abdominal pain, Generalized sp3 Followup: sp3 - With: Private Physician - When: Upon discharge from the Emergency Department - Reason: If symptoms return, Continuance of care Discharge Instructions: - Discharge Summary Sheet sp3 - Abdominal Pain, Adult sp3 Forms: - Medication Reconciliation Form sp3 - Antibiotic Education sp3 - Prescription Opioid Use sp3 - Patient Portal Instructions sp3 - Leadership Thank You Letter sp3 Signatures: Dispatcher [employer] EDMS Asad Saunders MD MD cha Page, Corey, PA PA cp Able, Lacie RN RN lg3 Charlette Duckworth MD MD 3 Padmini Soto [facility] Na Harris, SELVIN RN br2 Corrections: (The following items were deleted from the chart) 01:03 01:03 CBC+H.LAB.BRZ ordered. EDMS EDMS 01:03 01:03 COMPREHENSIVE METABOLIC PANEL+C.LAB.BRZ ordered. EDMS EDMS 01:03 01:03 LIPASE+C.LAB.BRZ ordered. EDMS EDMS
[2024-12-25 05:42] VITALS: TEMP 97.4; O2SAT 100
[2024-12-25 05:46] VITALS: BP 126/74
--- NOTE | 2024-12-25 06:49 | RAD REPORT ---
EXAM DESCRIPTION: Abdomen Pelvis W/Wo Contrast RadLex: CT ABDOMEN PELVIS WITHOUT THEN WITH IV CONTRAST CLINICAL HISTORY: 44 years Female; left flank pain; Bed Name: 16 TECHNIQUE: CT of the abdomen and pelvis [with and without] intravenous contrast. All CT scans at this facility use dose modulation, iterative reconstruction, and/or weight based dosi ng when appropriate to reduce radiation dose to as low as reasonably achievable. COMPARISON: None. FINDINGS: Lower thorax: Lung bases are clear Abdomen: Stomach: Gastric bypass changes noted. Liver: No focal lesions. No intrahepatic ductal distention. Gallbladder: Surgically absent. Pancreas: Within normal limits Spleen: Within normal limits Right kidney: No hydronephrosis. No focal lesion. No renal or ureteral calculi. Left kidney: No hydronephrosis. No focal lesion. No renal or ureteral calculi. Adrenal glands: Within normal limits Vascular structures: Within normal limits Nodes: No lymphadenopathy by size criteria Pelvis: Small bowel: No significant distention. Appendix: Not visualized. No pericecal inflammatory changes. Colon: No distention or acute pericolonic edema. Moderate stool burden. Questionable mild wall thicke an of the descending colon, could be secondary to underdistention. Peritoneum: No free air. Trace free fluid in the pelvis. Bones: No acute bone findings. Bladder: Unremarkable. Reproductive organs: No acute findings. IMPRESSION: 1. No urinary tract calculi. 2. Questionable mild wall thickening of the descending colon, could be secondary to underdistention . Correlate for colitis. 3. Moderate stool burden. 4. Trace free fluid in the pelvis, likely physiologic. Electronically signed by: Mariano Molina MD 12/25/2024 05:47 AM [facility] Due to temporary technical issues with the PACS/Qlusters reporting system, reports are being onra d by the in-house radiologist without review as a courtesy to ensure prompt reporting the interpreting radiologist is fully responsible for the content of the report. Transcribed Date/Time: 12/25/2024 6:49 AM
== END 2024-12-25 05:16 | disposition home or self-care (01) ==
LOC: ER 00:24
DX: R10.84 Generalized abdominal pain (principal); R10.32 Left lower quadrant pain
CPT/HCPCS: 96361; 85025; 81001; 36415; 81025; 83690; 80053; 74178; 96374; 99284; Q9967; J7030